=== PATIENT | male | born 1975 | race Caucasian/White ===

== ENCOUNTER 2021-01-22 11:18 | Emergency (ER) | payer OTHER ==
[~2021-01-22] VITALS: Ht 172.7 cm; Wt 74.8 kg
[2021-01-22] MEDS ORDERED: KEFLEX500 M1 PO (13:39)
[2021-01-22] MEDS ORDERED: NORCO5 PO (13:39)
[2021-01-22 14:00] VITALS: BP 120/69
== END 2021-01-22 14:22 | disposition home or self-care (01) ==
LOC: ER 11:18
DX: S62.511A Displaced fracture of proximal phalanx of right thumb, initial encounter for closed fracture (principal); S61.011A Laceration without foreign body of right thumb without damage to nail, initial encounter; W27.0XXA Contact with workbench tool, initial encounter; Y93.89 Activity, other specified; Y92.89 Other specified places as the place of occurrence of the external cause; Y99.8 Other external cause status